=== PATIENT | female | born 1945 | race Caucasian/White ===

== ENCOUNTER 2019-11-18 08:04 | Day surgery (SDC) | payer MEDICARE ==
[~2019-11-18] VITALS: Ht 152.4 cm; Wt 45.0 kg
[~2019-11-18 08:04] MED LIST: ACEB200C PO; CIPROFLOXACIN HCL 0.3% 2.5 ML OPHTHALMIC SOLUTION OD SCH; CYCLOPENTOLATE HCL 1% 2 ML OPHTHALMIC SOLUTION OD SCH; FLURBIPROFEN SODIUM 0.03% 2.5 ML OPHTHALMIC SOLUTION OD SCH; SIMV-260 PO; TETRACAINE HCL/PF 0.5% 4 ML OPHTHALMIC SOLUTION OD ONE; TROPICAMIDE 1% 2 ML OPHTHALMIC SOLUTION OD SCH
[2019-11-18] MEDS ORDERED: FentaNYL CITRATE-PF 100 MCG/2 ML VIAL IVP ONE (08:05)
[2019-11-18] MEDS ORDERED: EPINEPHrine 1:1,000 [1 MG/ML] AMP IM ONE (08:05)
[2019-11-18] MEDS ORDERED: POVIDONE-IODINE 10% 15 ML SOLUTION UD TP ONE (08:05)
[2019-11-18] MEDS ORDERED: LIDOCAINE/PF 1% 2 ML VIAL IM ONE (08:05)
[2019-11-18] MEDS ORDERED: HYALURONATE SODIUM 12 MG/ML 0.8 ML SYRINGE IO ONE (08:05)
[2019-11-18] MEDS ORDERED: HYALURONATE SOD/CHONDROITIN SOD 0.5 ML VIAL IO ONE (08:05)
[2019-11-18] MEDS ORDERED: TROPICAMIDE 1% 2 ML OPHTHALMIC SOLUTION ONE (08:09)
[2019-11-18] MEDS ORDERED: RINGERS SOLUTION,LACTATED 500 ML IV ONE ×2 (08:09→08:30)
[2019-11-18] MEDS ORDERED: CYCLOPENTOLATE HCL 1% 2 ML OPHTHALMIC SOLUTION ONE (08:10)
[2019-11-18] MEDS ORDERED: TETRACAINE HCL/PF 0.5% 4 ML OPHTHALMIC SOLUTION ONE (08:10)
[2019-11-18] MEDS ORDERED: FLURBIPROFEN SODIUM 0.03% 2.5 ML OPHTHALMIC SOLUTION ONE (08:10)
[2019-11-18] MEDS ORDERED: CIPROFLOXACIN HCL 0.3% 2.5 ML OPHTHALMIC SOLUTION ONE (08:10)
[2019-11-18] MEDS ORDERED: TETRACAINE HCL/PF 0.5% 4 ML OPHTHALMIC SOLUTION OD ONE (08:30)
[2019-11-18] MEDS: FLURBIPROFEN SODIUM 0.03% 2.5 ML OPHTHALMIC SOLUTION OD SCH ×3 (09:39→09:53)
[2019-11-18] MEDS: TROPICAMIDE 1% 2 ML OPHTHALMIC SOLUTION OD SCH ×3 (09:39→09:53)
[2019-11-18] MEDS: CYCLOPENTOLATE HCL 1% 2 ML OPHTHALMIC SOLUTION OD SCH ×3 (09:39→09:53)
[2019-11-18] MEDS: CIPROFLOXACIN HCL 0.3% 2.5 ML OPHTHALMIC SOLUTION OD SCH ×3 (09:39→09:53)
== END 2019-11-18 12:00 | disposition home or self-care (01) ==
LOC: SDS 08:04
PROVIDERS: ATTEND Ophthalmology
DX: H25.11 Age-related nuclear cataract, right eye (principal); H40.52X3 Glaucoma secondary to other eye disorders, left eye, severe stage; H35.033 Hypertensive retinopathy, bilateral; Z79.899 Other long term (current) drug therapy; Z11.59 Encounter for screening for other viral diseases
CPT/HCPCS: 66984; 87635; 93005; J0171; J3010; J3490 ×2; J7120; V2632